=== PATIENT | female | born 1940 | race Caucasian/White ===

== ENCOUNTER → 2017-09-28 | Outpatient (CLI) | payer MEDICARE ==
--- NOTE | 2017-09-28 16:54 | ECHOF ---
Referral Reason:R06.02 shortness of breath, R42 Dizziness MEASUREMENTS -------- HEIGHT: 149.9 cm WEIGHT: 74.8 kg BP: 179/100 RVIDd: 2.7 cm (< 3.3) IVSd: 0.8 cm (0.6 - 1.1) LVIDd: 4.6 cm (3.9 - 5.3) LVPWd: 0.8 cm (0.6 - 1.1) IVSs: 1.4 cm LVIDs: 2.6 cm LVPWs: 1.4 cm LAESV Index (A-L): 12.34 ml/m Ao Diam: 2.8 cm (2.0 - 3.7) AV Cusp: 1.8 cm (1.5 - 2.6) LA Diam: 3.1 cm (2.7 - 3.8) MV EXCURSION: 16.312 mm (> 18.000) MV EF SLOPE: 62 mm/s (70 - 150) EPSS: 0.5 cm MV E Gene: 0.58 m/s MV DecT: 287 ms MV A Gene: 0.83 m/s MV E/A Ratio: 0.70 RAP: 5.00 mmHg RVSP: 8.33 mmHg FINDINGS -------- Sinus rhythm. This was a technically difficult study with suboptimal views. Unable to obtain IV access for contra st use. The left ventricular size is normal. Left ventricular wall thickness is normal. Overall left vent ricular systolic function is normal with, an EF between 55 - 60 %. The right ventricle is normal in size and function. Normal LA size by volume 22+/-6 ml/m2. The right atrium is normal in size. Aortic valve is trileaflet and is mildly thickened. There is no evidence of aortic regurgitation. There is no evidence of aortic stenosis. The mitral valve leaflets are mildly thickened. There is trace to mild mitral regurgitation. Trace tricuspid regurgitation present. Right ventricular systolic pressure is normal at < 35 mmHg. There is no evidence of pulmonary hypertension. The pulmonic valve was not well visualized. The aortic root size is normal. Normal inferior vena cava with normal inspiratory collapse consistent with estimated right atrial pre ssure of 5 mmHg. There is a trivial pericardial effusion present. CONCLUSIONS -------- 1. Sinus rhythm. 2. This was a technically difficult study with suboptimal views. 3. Unable to obtain IV access for contrast use. 4. The left ventricular size is normal. 5. Left ventricular wall thickness is normal. 6. Overall left ventricular systolic function is normal with, an EF between 55 - 60 %. 7. Normal LA size by volume 22+/-6 ml/m2. 8. Aortic valve is trileaflet and is mildly thickened. 9. The mitral valve leaflets are mildly thickened. 10. There is trace to mild mitral regurgitation. 11. Trace tricuspid regurgitation present. 12. Right ventricular systolic pressure is normal at < 35 mmHg. 13. There is no evidence of pulmonary hypertension. 14. The pulmonic valve was not well visualized. 15. The aortic root size is normal. 16. There is a trivial pericardial effusion present. [employer]: Sudhir Johnson RDCS
--- NOTE | 2017-09-29 07:56 | US ---
EXAMINATION TYPE: US carotid duplex BILAT DATE OF EXAM: 09/28/2017 COMPARISON: US 2011 CLINICAL HISTORY: R06.02 shortness of breath, R42 Dizziness. SOB, dizziness, weakness, nausea EXAM MEASUREMENTS: RIGHT: Peak Systolic Velocity (PSV) cm/sec ----- Right CCA: 63.9 ----- Right ICA: 77.4 ----- Right ECA: 131.9 ICA/CCA ratio: 1.2 RIGHT: End Diastole cm/sec ----- Right CCA: 16.8 ----- Right ICA: 19.8 ----- Right ECA: 14.9 LEFT: Peak Systolic Velocity (PSV) cm/sec ----- Left CCA: 66.8 ----- Left ICA: 84.6 ----- Left ECA: 73.8 ICA/CCA ratio: 1.3 LEFT: End Diastole cm/sec ----- Left CCA: 21.5 ----- Left ICA: 25.4 ----- Left ECA: 10.3 VERTEBRALS (direction of flow): Right Vertebral: Antegrade Left Vertebral: Antegrade Rhythm: Normal Bilateral intimal thickening, plaque bilateral bulb, elevated velocity: right proximal ECA, no signif icant stenosis. IMPRESSION: Mild grayscale atheromatous plaquing within the carotid bulbs. No sonographic evidence o f hemodynamically significant stenosis within either carotid arterial system.
== END | disposition home or self-care (01) ==
LOC: RADECHMAIN 14:34
PROVIDERS: ATTEND Internal Medicine
DX: I77.89 Other specified disorders of arteries and arterioles (principal); I08.0 Rheumatic disorders of both mitral and aortic valves
CPT/HCPCS: 93306; 93880

== ENCOUNTER 2018-06-13 15:41 | Emergency (ER) | payer MEDICARE ==
[2018-06-13 15:53] VITALS: BP 125/90; PULSE 80; RESP 18; TEMP 97.7
--- NOTE | 2018-06-13 17:46 | XR ---
PROCEDURE: XR shoulder complete LT - 3V DATE AND TIME: 06/13/2018 5:34 PM CLINICAL INDICATION: Posterior shoulder pain after fall TECHNIQUE: 2 oblique AP views and an oblique scapular Y view COMPARISON: 10/05/2010 FINDINGS: There is no fracture or malalignment. Exuberant osteophytic spurring is noted at the glenohumeral joint. The soft tissues are unremarkable. IMPRESSION: NO ACUTE PROCESS.
--- NOTE | 2018-06-13 17:47 | XR ---
PROCEDURE: XR humerus LT - 2V DATE AND TIME: 06/13/2018 5:34 PM CLINICAL INDICATION: PHH; Pain TECHNIQUE: AP and lateral views to include the shoulder and elbow. COMPARISON: None FINDINGS: Bones and joints and soft tissues are negative for acute findings. Exuberant osteophytic spur formation is seen at the glenohumeral joint. IMPRESSION: NO ACUTE PROCESS.
--- NOTE | 2018-06-13 18:12 | ED ---
General Adult HPI - General Chief complaint: Fall Stated complaint: fall/shoulder & arm pain Time Seen by Provider: 06/13/18 15:55 Source: patient, RN notes reviewed Mode of arrival: wheelchair Limitations: no limitations - History of Present Illness Initial comments: This is a 77-year-old female presents emergency Department complaining of left humerus and left shoulder pain. Patient states she fell on her multiple is been sore ever since per patient states she called her primary medical care doctor he told to come to the emergency department. Patient states it hurts to lift her arm in abduction. Patient has a difficult time with external rotation as well. Patient has no swelling patient has no gross deformity. Patient states it just hurts with movement. - Related Data Home Medications Medication Instructions Recorded Confirmed Isosorbide Mononitrate ER [Imdur] 30 mg PO DAILY 02/02/15 02/03/15 ALPRAZolam 0.5 mg PO HS 02/03/15 02/03/15 Metoprolol Succinate (ER) [Toprol 50 mg PO DAILY 02/03/15 02/03/15 Xl] amLODIPine [Norvasc] 10 mg PO DAILY 02/03/15 02/03/15 Previous Rx's Medication Instructions Recorded Ondansetron Odt [Zofran Odt] 4 mg PO Q8HR PRN #10 tab 02/02/15 Allergies Allergy/AdvReac Type Severity Reaction Status Date / Time biotin AdvReac Unknown Verified 06/13/18 15:53 hydromorphone HCl AdvReac Confusion Verified 06/13/18 15:53 [From Dilaudid] promethazine HCl AdvReac Confusion Verified 06/13/18 15:53 [From Phenergan] Review of Systems ROS Statement: Those systems with pertinent positive or pertinent negative responses have been documented in the HPI. ROS Other: All systems not noted in ROS Statement are negative. Past Medical History Past Medical History: Hypertension Additional Past Medical History / Comment(s): syncope History of Any Multi-Drug Resistant Organisms: None Reported Past Surgical History: Adenoidectomy, Cholecystectomy, Hysterectomy, Tonsillectomy Additional Past Surgical History / Comment(s): cyst removed from back Past Psychological History: Anxiety Smoking Status: Former smoker Past Alcohol Use History: None Reported Past Drug Use History: None Reported - Past Family History Mother Family Medical History: Diabetes Mellitus General Exam - General Exam Comments Initial Comments: GENERAL Patient is well-developed and well-nourished. Patient is in mild distress. EYES Patient's pupils are equal and round. Extraocular motion is intact SKIN Unremarkable NEURO The patient is alert and oriented 3 PYSCH Patient has normal interpersonal interactions. MUSCULOSKELETAL Left shoulder is tender to palpate in the lateral aspect as well as the mid shaft of the humerus. Patient has no clavicle tenderness. Patient states The tenderness. Patient has no elbow or forearm tenderness. Patient has a difficult time abducting the arm past 30 and externally rotating without causing significant pain Limitations: no limitations Course Vital Signs 06/13/18 15:51 Temperature 97.7 F Pulse Rate 80 Respiratory 18 Rate Blood Pressure 125/90 O2 Sat by Pulse 98 Oximetry Medical Decision Making - Medical Decision Making X-ray of the shoulder and humerus show no acute abnormality. Patient will follow-up with orthopedics. Disposition Clinical Impression: Left shoulder strain Disposition: HOME SELF-CARE Condition: Good Instructions: Fall Prevention for Older Adults (ED) Is patient prescribed a controlled substance at d/c from ED?: No Referrals: Paulino Menchaca MD [Primary Care Provider] - 1-2 days Darrell Adame MD [STAFF PHYSICIAN] - 1-2 days Time of Disposition: 18:13
== END 2018-06-13 19:04 | disposition home or self-care (01) ==
LOC: EC 15:41
DX: S46.912A Strain of unspecified muscle, fascia and tendon at shoulder and upper arm level, left arm, initial encounter (principal); I10 Essential (primary) hypertension; F41.9 Anxiety disorder, unspecified; Z87.891 Personal history of nicotine dependence; Z88.5 Allergy status to narcotic agent; Z88.8 Allergy status to other drugs, medicaments and biological substances; Z79.899 Other long term (current) drug therapy; W19.XXXA Unspecified fall, initial encounter; Y92.009 Unspecified place in unspecified non-institutional (private) residence as the place of occurrence of the external cause
CPT/HCPCS: 99283

== ENCOUNTER 2018-11-02 14:48 | Emergency (ER) | payer MEDICARE ==
[2018-11-02] MEDS ORDERED: MECLIZINE 12.5 MG TAB PO STA (15:16)
[2018-11-02] MEDS ORDERED: SODIUM CHLORIDE 0.9% 500 ML 500 ML IV STA (15:16)
--- NOTE | 2018-11-02 15:29 | ED ---
General Adult HPI - General Chief complaint: Dizziness Stated complaint: Dizziness, R leg pain Time Seen by Provider: 11/02/18 15:01 Source: patient, RN notes reviewed, old records reviewed Mode of arrival: wheelchair Limitations: no limitations - History of Present Illness Initial comments: 78-year-old female presenting for evaluation of dizziness and lightheadedness. She's had these episodes for several weeks, states the patient became more severe today. She reports worsening symptoms with sitting up and leaning forward. Patient has several additional complaints including chest pain, dyspnea, nausea, and extremity pain. She states she has pain in her bilateral lower extremities, worse on the right with ambulation and overuse. This is been ongoing as well. She does report some intermittent anterior chest pain. She states she has worsening dyspnea with ambulation. She reports previous history of intracranial hemorrhage. She reports intermittent headaches. - Related Data Home Medications Medication Instructions Recorded Confirmed Isosorbide Mononitrate ER [Imdur] 30 mg PO DAILY 02/02/15 11/02/18 amLODIPine [Norvasc] 10 mg PO DAILY 02/03/15 11/02/18 Metoprolol Tartrate [Lopressor] 50 mg PO DAILY 06/13/18 11/02/18 Nitroglycerin Sl Tabs [Nitrostat] 0.4 mg SUBLINGUAL Q5M PRN 06/13/18 11/02/18 Albuterol Inhaler [Ventolin Hfa 2 puff INHALATION RT-Q6H PRN 11/02/18 11/02/18 Inhaler] Naproxen Sod/Diphenhydramine 1 tab PO HS PRN 11/02/18 11/02/18 [Aleve Pm Caplet] traMADol HCL [Ultram] 50 mg PO Q8H PRN 11/02/18 11/02/18 Allergies Allergy/AdvReac Type Severity Reaction Status Date / Time biotin AdvReac Unknown Verified 11/02/18 17:10 hydromorphone HCl AdvReac Confusion Verified 11/02/18 17:10 [From Dilaudid] promethazine HCl AdvReac Confusion Verified 11/02/18 17:10 [From Phenergan] Review of Systems ROS Statement: Those systems with pertinent positive or pertinent negative responses have been documented in the HPI. ROS Other: All systems not noted in ROS Statement are negative. Past Medical History Past Medical History: Hypertension Additional Past Medical History / Comment(s): syncope History of Any Multi-Drug Resistant Organisms: None Reported Past Surgical History: Adenoidectomy, Cholecystectomy, Hysterectomy, Tonsillect juan r Additional Past Surgical History / Comment(s): cyst removed from back Past Psychological History: Anxiety Smoking Status: Former smoker Past Alcohol Use History: None Reported Past Drug Use History: None Reported - Past Family History Mother Family Medical History: Diabetes Mellitus General Exam Limitations: no limitations General appearance: alert, in no apparent distress Head exam: Present: atraumatic, normocephalic Eye exam: Present: normal appearance, PERRL, EOMI ENT exam: Present: mucous membranes dry Neck exam: Present: normal inspection. Absent: tenderness, meningismus Respiratory exam: Present: normal lung sounds bilaterally. Absent: respiratory distress, wheezes Cardiovascular Exam: Present: regular rate, normal rhythm GI/Abdominal exam: Present: soft. Absent: distended, tenderness Extremities exam: Present: normal inspection, normal capillary refill, other (Bilateral DP pulses, 2+). Absent: pedal edema Neurological exam: Present: alert, oriented X3, CN II-XII intact. Absent: motor sensory deficit Psychiatric exam: Present: normal affect, normal mood Skin exam: Present: warm, dry, intact. Absent: cyanosis, diaphoretic Course Vital Signs 11/02/18 11/02/18 14:55 15:44 Temperature 97.8 F Pulse Rate 80 80 Respiratory 18 18 Rate Blood Pressure 158/73 147/72 O2 Sat by Pulse 99 98 Oximetry - Reevaluation(s) Reevaluation #1: 11/02/18 17:46 Patient reevaluated, her symptoms are controlled, she is eager for discharge. Family at bedside. EKG Findings - EKG Comments: EKG Findings:: EKG: Normal sinus rhythm, rate of 77, MA interval 140, QRS duration 74, QTC 448, no ST segment elevation Medical Decision Making - Medical Decision Making 78-year-old female with multiple complaints. Patient well-appearing with stable vitals. EKG is nonischemic. She has mild leukocytosis 12.3, uncertain etiology. She has normal electrolytes. Urinalysis shows 14 white cells with no urinary symptoms. CT negative for intracranial hemorrhage, chest x-ray negative for focal pneumonia acute cardiopulmonary disease. Patient is reevaluated, resting comfortably after IV fluids and meclizine. Eager for discharge. Will follow-up with primary care physician, she has an appointment in the next several days. - Lab Data Result diagrams: 11/02/18 15:29 11/02/18 15:29 Lab Results 11/02/18 11/02/18 11/02/18 Range/Units 15:29 15:29 15:29 WBC 12.3 H (3.8-10.6) k/uL RBC 5.07 (3.80-5.40) m/uL Hgb 14.3 (11.4-16.0) gm/dL Hct 43.5 (34.0-46.0) % MCV 85.9 (80.0-100.0) fL MCH 28.1 (25.0-35.0) pg MCHC 32.8 (31.0-37.0) g/dL RDW 14.3 (11.5-15.5) % Plt Count 335 (150-450) k/uL Neutrophils % 60 % Lymphocytes % 31 % Monocytes % 4 % Eosinophils % 2 % Basophils % 1 % Neutrophils # 7.3 (1.3-7.7) k/uL Lymphocytes # 3.8 (1.0-4.8) k/uL Monocytes # 0.5 (0-1.0) k/uL Eosinophils # 0.3 (0-0.7) k/uL Basophils # 0.1 (0-0.2) k/uL PT 10.3 (9.0-12.0) sec INR 1.0 (<1.2) APTT 22.9 (22.0-30.0) sec Sodium 142 (137-145) mmol/L Potassium 5.0 (3.5-5.1) mmol/L Chloride 110 H (98-107) mmol/L Carbon Dioxide 20 L (22-30) mmol/L Anion Gap 12 mmol/L BUN 13 (7-17) mg/dL Creatinine 0.75 (0.52-1.04) mg/dL Est GFR (CKD-EPI)AfAm 90 (>60 ml/min/1.73 sqM) Est GFR (CKD-EPI)NonAf 78 (>60 ml/min/1.73 sqM) Glucose 101 H (74-99) mg/dL Calcium 9.9 (8.4-10.2) mg/dL Magnesium 2.1 (1.6-2.3) mg/dL Total Bilirubin 0.8 (0.2-1.3) mg/dL AST 23 (14-36) U/L ALT 15 (9-52) U/L Alkaline Phosphatase 142 H (38-126) U/L Troponin I (0.000-0.034) ng/mL Total Protein 7.9 (6.3-8.2) g/dL Albumin 4.8 (3.5-5.0) g/dL Urine Color Urine Appearance (Clear) Urine pH (5.0-8.0) Ur Specific Toyah (1.001-1.035) Urine Protein (Negative) Urine Glucose (UA) (Negative) Urine Ketones (Negative) Urine Blood (Negative) Urine Nitrite (Negative) Urine Bilirubin (Negative) Urine Urobilinogen (<2.0) mg/dL Ur Leukocyte Esterase (Negative) Urine RBC (0-5) /hpf Urine WBC (0-5) /hpf Ur Squamous Epith Cells (0-4) /hpf Urine Bacteria (None) /hpf Urine Mucus (None) /hpf 11/02/18 11/02/18 Range/Units 15:29 15:39 WBC (3.8-10.6) k/uL RBC (3.80-5.40) m/uL Hgb (11.4-16.0) gm/dL Hct (34.0-46.0) % MCV (80.0-100.0) fL MCH (25.0-35.0) pg MCHC (31.0-37.0) g/dL RDW (11.5-15.5) % Plt Count (150-450) k/uL Neutrophils % % Lymphocytes % % Monocytes % % Eosinophils % % Basophils % % Neutrophils # (1.3-7.7) k/uL Lymphocytes # (1.0-4.8) k/uL Monocytes # (0-1.0) k/uL Eosinophils # (0-0.7) k/uL Basophils # (0-0.2) k/uL PT (9.0-12.0) sec INR (<1.2) APTT (22.0-30.0) sec Sodium (137-145) mmol/L Potassium (3.5-5.1) mmol/L Chloride (98-107) mmol/L Carbon Dioxide (22-30) mmol/L Anion Gap mmol/L BUN (7-17) mg/dL Creatinine (0.52-1.04) mg/dL Est GFR (CKD-EPI)AfAm (>60 ml/min/1.73 sqM) Est GFR (CKD-EPI)NonAf (>60 ml/min/1.73 sqM) Glucose (74-99) mg/dL Calcium (8.4-10.2) mg/dL Magnesium (1.6-2.3) mg/dL Total Bilirubin (0.2-1.3) mg/dL AST (14-36) U/L ALT (9-52) U/L Alkaline Phosphatase (38-126) U/L Troponin I <0.012 (0.000-0.034) ng/mL Total Protein (6.3-8.2) g/dL Albumin (3.5-5.0) g/dL Urine Color Colorless Urine Appearance Clear (Clear) Urine pH 7.5 (5.0-8.0) Ur Specific Toyah 1.005 (1.001-1.035) Urine Protein Negative (Negative) Urine Glucose (UA) Negative (Negative) Urine Ketones Negative (Negative) Urine Blood Negative (Negative) Urine Nitrite Negative (Negative) Urine Bilirubin Negative (Negative) Urine Urobilinogen <2.0 (<2.0) mg/dL Ur Leukocyte Esterase Moderate H (Negative) Urine RBC 3 (0-5) /hpf Urine WBC 14 H (0-5) /hpf Ur Squamous Epith Cells <1 (0-4) /hpf Urine Bacteria Rare H (None) /hpf Urine Mucus Rare H (None) /hpf Disposition Clinical Impression: Dehydration, Vertigo Disposition: HOME SELF-CARE Condition: Good Instructions (If sedation given, give patient instructions): Dizziness (ED) Is patient prescribed a controlled substance at d/c from ED?: No Referrals: Paulino Menchaca MD [Primary Care Provider] - 1-2 days Time of Disposition: 17:47
[2018-11-02 15:40] LABS: Basophils # (A) 0.1 k/uL (0-0.2); Basophils % (A) 1 %; Eosinophils # (A) 0.3 k/uL (0-0.7); Eosinophils % (A) 2 %; HCT 43.5 % (34.0-46.0); HGB 14.3 gm/dL (11.4-16.0); Lymphocytes # (A) 3.8 k/uL (1.0-4.8); Lymphocytes % (A) 31 %; MCH 28.1 pg (25.0-35.0); MCHC 32.8 g/dL (31.0-37.0); MCV 85.9 fL (80.0-100.0); Mean Platelet Volume 7.4; Monocytes # (A) 0.5 k/uL (0-1.0); Monocytes % (A) 4 %; Neutrophils # (A) 7.3 k/uL (1.3-7.7); Neutrophils % (A) 60 %; Platelet Count 335 k/uL (150-450); RBC 5.07 m/uL (3.80-5.40); RDW 14.3 % (11.5-15.5); WBC 12.3 k/uL (3.8-10.6)
[2018-11-02 15:50] LABS: Albumin 4.8 g/dL (3.5-5.0); Calcium 9.9 mg/dL (8.4-10.2); Magnesium 2.1 mg/dL (1.6-2.3); Total Bilirubin 0.8 mg/dL (0.2-1.3); Total Protein 7.9 g/dL (6.3-8.2)
[2018-11-02 15:53] LABS: Appearance,Urine Clear (Clear); Bacteria,Urine Rare /hpf; Bilirubin,Urine Negative (Negative); Blood,Urine Negative (Negative); Color,Urine Colorless; Glucose,Urine (UA) Negative (Negative); Ketones,Urine Negative (Negative); Leukocyte Esterase,Urine Moderate (Negative); Mucus,Urine Rare /hpf; Nitrite,Urine Negative (Negative); PH, Urine 7.5 (5.0-8.0); Protein,Urine Negative (Negative); RBC,Urine 3 /hpf (0-5); Specific Gravity,Urine 1.005 (1.001-1.035); Squamous Epithelial Cell,Urine <1 /hpf (0-4); Urobilinogen,Urine <2.0 mg/dL (<2.0); WBC,Urine 14 /hpf (0-5)
[2018-11-02 16:09] LABS: Partial Thromboplastin Time 22.9 sec (22.0-30.0); Prothrombin Time 10.3 sec (9.0-12.0)
--- NOTE | 2018-11-02 16:18 | XR ---
EXAMINATION TYPE: XR chest 2V DATE OF EXAM: 11/02/2018 COMPARISON: 02/02/2015 INDICATION: Syncope TECHNIQUE: Frontal and lateral views of the chest are obtained. FINDINGS: The heart size is normal. The pulmonary vasculature is normal. The lungs are clear. Degenerative changes are at the left shoulder IMPRESSION: 1. No acute pulmonary process.
--- NOTE | 2018-11-02 16:22 | CT ---
EXAMINATION TYPE: CT brain wo con DATE OF EXAM: 11/02/2018 COMPARISON: 02/04/2015 INDICATION: Dizziness. DLP: 1156.4 mGycm, Automated exposure control for dose reduction was used. CONTRAST: None CT of the brain is performed utilizing 3 mm thick sections through the posterior fossa and 3 mm thick sections through the remaining calvarium. Study is performed within 24 hours of arrival to the hosp [facility]. No abnormal hyperdensity is present to suggest an acute intracranial hemorrhage. No mass lesion is evident. No acute infarcts are evident. Ventricles and sulci are appropriate for the patient age. Paranasal sinuses and mastoid air cells within the [id number] are clear. IMPRESSIONS: 1. Normal CT Brain
[2018-11-02 18:15] VITALS: BP 180/101; PULSE 84; RESP 16; TEMP 98
== END 2018-11-02 18:16 | disposition home or self-care (01) ==
LOC: EC 14:48
DX: E86.0 Dehydration (principal); D72.829 Elevated white blood cell count, unspecified; R07.89 Other chest pain; R06.00 Dyspnea, unspecified; R11.0 Nausea; R51 Headache; I10 Essential (primary) hypertension; Z87.891 Personal history of nicotine dependence; Z79.899 Other long term (current) drug therapy; Z88.8 Allergy status to other drugs, medicaments and biological substances; Z88.5 Allergy status to narcotic agent
CPT/HCPCS: 36415; 70450; 71046; 80053; 81001; 83735; 84484; 85025; 85610; 85730; 93005; 96360; 96361; 99285

== ENCOUNTER → 2020-03-12 | Outpatient (CLI) | payer MEDICARE ==
--- NOTE | 2020-03-12 15:13 | XR ---
EXAMINATION TYPE: XR Hip Complete RT DATE OF EXAM: 03/12/2020 COMPARISON: NONE HISTORY: Pain TECHNIQUE: 2 views submitted FINDINGS: Severe arthropathy of the hip with hypertrophic changes. No acute fracture or dislocation. Lucency ov erlying the right femoral neck a be soft tissue related. IMPRESSION: 1. Severe arthropathy with probable soft tissue artifact overlying the right femoral neck. Recommend CT scan for further evaluation. A Yellow level critical message alert has been initiated for Paulino Menchaca MD via the [facility] Results System on 03/12/2020 3:11 PM. This message alert has been sent to Paulino Menchaca MD via the preferences provided by the clinician for the receipt of Radiology Critical Findings. [employer] e ID [id number].
--- NOTE | 2020-03-12 15:15 | XR ---
EXAM TYPE: LUMBAR SPINE X RAY SERIES COMPARISON: NONE HISTORY: Pain TECHNIQUE: 4 views are submitted. FINDINGS: Alignment is anatomic. The pedicles are intact. The transverse processes are intact. Diffuse osteop enia with multilevel degenerative disc disease and scoliotic curvature. Grade 1 anterolisthesis L4 on L5. Multilevel facet arthropathy. Vascular calcifications noted. Surgical clips in the right upper q uadrant. IMPRESSION: 1. Diffuse osteopenia with multilevel degenerative disc disease and facet arthropathy. Grade 1 jacqueline listhesis L4 and L5. Foraminal encroachment L4-5 and L5-S1 suspected. Recommend follow-up MRI.
== END | disposition home or self-care (01) ==
LOC: RADXRMAIN 14:29
PROVIDERS: ATTEND Internal Medicine
DX: M12.851 Other specific arthropathies, not elsewhere classified, right hip (principal); M43.16 Spondylolisthesis, lumbar region; M51.36 Other intervertebral disc degeneration, lumbar region; M47.816 Spondylosis without myelopathy or radiculopathy, lumbar region; M85.88 Other specified disorders of bone density and structure, other site
CPT/HCPCS: 72110; 73502

== ENCOUNTER 2020-05-27 09:50 | Emergency (ER) | payer MEDICARE ==
[2020-05-27] MEDS ORDERED: SODIUM CHLORIDE 0.9% 500 ML 500 ML IV STA (10:08)
[2020-05-27 10:29] LABS: Basophils # (A) 0.1 k/uL (0-0.2); Basophils % (A) 1 %; Eosinophils # (A) 0.3 k/uL (0-0.7); Eosinophils % (A) 4 %; HCT 45.5 % (34.0-46.0); HGB 15.5 gm/dL (11.4-16.0); Lymphocytes # (A) 3.1 k/uL (1.0-4.8); Lymphocytes % (A) 35 %; MCH 29.6 pg (25.0-35.0); Mean Platelet Volume 7.7; Monocytes # (A) 0.5 k/uL (0-1.0); Monocytes % (A) 6 %; Neutrophils # (A) 4.7 k/uL (1.3-7.7); Neutrophils % (A) 52 %; Platelet Count 282 k/uL (150-450); RBC 5.23 m/uL (3.80-5.40); RDW 13.8 % (11.5-15.5)
[2020-05-27] MEDS ORDERED: MORPHINE SULFATE 4 MG/ML SYRINGE IVP STA (10:29)
[2020-05-27] MEDS ORDERED: ONDANSETRON 4 MG/2 ML VIAL IVP STA (10:29)
--- NOTE | 2020-05-27 10:33 | ED ---
Chest Pain HPI - General Chief Complaint: Chest Pain Stated Complaint: SOB Time Seen by Provider: 05/27/20 09:59 Source: patient, EMS, RN notes reviewed Mode of arrival: EMS Limitations: no limitations - History of Present Illness Initial Comments: 79-year-old female presents emergency Department with multiple complaints. Patient states that she's been having ongoing leg pain, cramping that radiates up throughout her body. Patient states it happens typically every morning. Patient states that she talked to her doctor about it but they do not do an ything at that time. Patient states that she's not start any new medications. Patient states over the last 3-4 days she's had a cough congestion. Patient states she's been wheezing she does have an inhaler but states that this is old that she uses. Patient also also has a abscess on her back which was draining but now is healing up. No reported fevers or chills no current chest pain. Patient denies any abdominal complaints including nausea and diarrhea constipation. - Related Data Home Medications Medication Instructions Recorded Confirmed Isosorbide Mononitrate ER [Imdur] 30 mg PO DAILY 02/02/15 05/27/20 amLODIPine [Norvasc] 10 mg PO DAILY 02/03/15 05/27/20 Metoprolol Tartrate [Lopressor] 50 mg PO DAILY 06/13/18 05/27/20 Nitroglycerin Sl Tabs [Nitrostat] 0.4 mg SUBLINGUAL Q5M PRN 06/13/18 05/27/20 Albuterol Sulfate [Ventolin HFA] 1 - 2 puff INHALATION RT-Q6H PRN 05/27/20 05/27/20 Ergocalciferol [Vitamin D2] 50,000 unit PO MO 05/27/20 05/27/20 Ipratropium-Albuterol Nebulize 3 ml INHALATION RT-QID 05/27/20 05/27/20 [Duoneb 0.5 mg-3 mg/3 ml Soln] Previous Rx's Medication Instructions Recorded methocarbamoL [Robaxin] 500 mg PO BID #10 tab 05/27/20 Allergies Allergy/AdvReac Type Severity Reaction Status Date / Time biotin AdvReac Unknown Verified 05/27/20 10:32 hydromorphone HCl AdvReac Confusion Verified 05/27/20 10:32 [From Dilaudid] promethazine HCl AdvReac Confusion Verified 05/27/20 10:32 [From Phenergan] Review of Systems ROS Statement: Those systems with pertinent positive or pertinent negative responses have been documented in the HPI. ROS Other: All systems not noted in ROS Statement are negative. EKG Findings - EKG Comments: EKG Findings:: EKG performed at 10:01 normal sinus rhythm rate of 75 ME 140 QRS 74 QT/QTC 390 /442 Past Medical History Past Medical History: Hypertension Additional Past Medical History / Comment(s): syncope History of Any Multi-Drug Resistant Organisms: None Reported Past Surgical History: Adenoidectomy, Cholecystectomy, Hysterectomy, Ton sillectomy Additional Past Surgical History / Comment(s): cyst removed from back Past Psychological History: Anxiety Smoking Status: Former smoker Past Alcohol Use History: None Reported Past Drug Use History: None Reported - Past Family History Mother Family Medical History: Diabetes Mellitus General Exam General appearance: alert, in no apparent distress Head exam: Present: atraumatic, normocephalic, normal inspection Eye exam: Present: normal appearance, PERRL, EOMI. Absent: scleral icterus, conjunctival injection, periorbital swelling ENT exam: Present: normal exam, mucous membranes moist Neck exam: Present: normal inspection, full ROM. Absent: tenderness, meningis mus, lymphadenopathy Respiratory exam: Present: normal lung sounds bilaterally. Absent: respiratory distress, wheezes, rales, rhonchi, stridor Cardiovascular Exam: Present: regular rate, normal rhythm, normal heart sounds. Absent: systolic murmur, diastolic murmur, rubs, gallop, clicks GI/Abdominal exam: Present: soft, normal bowel sounds. Absent: distended, tenderness, guarding, rebound, rigid Extremities exam: Present: other (Extremities full range of motion neurovascular intact equal color equal warmth pulses equal, reflexes normal. Full strength) Back exam: Present: other (There is a healed over wound on her back with no erythema nonfluctuant) Neurological exam: Present: alert, oriented X3, CN II-XII intact, reflexes normal. Absent: motor sensory deficit Skin exam: Present: warm, dry, intact, normal color. Absent: rash Course Vital Signs 05/27/20 05/27/20 09:51 12:07 Temperature 98.2 F Pulse Rate 80 71 Respiratory 22 18 Rate Blood Pressure 125/97 136/84 O2 Sat by Pulse 99 98 Oximetry Chest Pain MDM - MDM This 79-year-old female presented for leg cramping, pain has been ongoing for several weeks. Patient did have mild lactic acidosis though most likely from mild dehydration. Patient was hydrated, but he has his is within normal limits. Patient has no signs of infection. Patient had no chest pain and EKG troponin negative. Patient did have slight cough congestion with chest x-rays unremarkable, Covid negative. Patient's legs are equal color equal warmth patient has normal neuro exam she is able to ambulate by herself with no difficulty. There is no ataxia. Disposition Clinical Impression: Leg cramping, Mild dehydration, Upper respiratory infection Disposition: HOME SELF-CARE Condition: Stable Instructions (If sedation given, give patient instructions): Leg Cramps (ED) Additional Instructions: Please return to the Emergency Department if symptoms worsen or any other concerns. Prescriptions: methocarbamoL [Robaxin] 500 mg PO BID #10 tab Is patient prescribed a controlled substance at d/c from ED?: No Referrals: Paulino Menchaca MD [Primary Care Provider] - 1-2 days Time of Disposition: 13:30
[2020-05-27 10:38] LABS: Partial Thromboplastin Time 22.9 sec (22.0-30.0); Prothrombin Time 10.4 sec (9.0-12.0)
[2020-05-27 10:41] LABS: Albumin 4.5 g/dL (3.5-5.0); C Reactive Protein 11.1 mg/L (<10.0); Calcium 9.8 mg/dL (8.4-10.2); Magnesium 2.2 mg/dL (1.6-2.3); Potassium 4.5 mmol/L (3.5-5.1); Total Bilirubin 0.9 mg/dL (0.2-1.3); Total Protein 7.5 g/dL (6.3-8.2)
[2020-05-27] MEDS ORDERED: SODIUM CHLORIDE 0.9% 1,000 ML IV ONE (10:47)
--- NOTE | 2020-05-27 11:06 | XR ---
EXAMINATION TYPE: XR chest 2V DATE OF EXAM: 05/27/2020 COMPARISON: Chest x-ray November 02, 2018 HISTORY: Chest pain. Discharged from posterior mid thoracic cyst. TECHNIQUE: Frontal and lateral views of the chest are obtained. FINDINGS: There is chronic parenchymal changes without suspicious new focal air space opacity, pleur al effusion, or pneumothorax seen. The cardiac silhouette size is stable and within normal limits. The osseous structures are demineralized. Degenerative changes left greater than right bilateral gle nohumeral joints. IMPRESSION: Chronic changes without acute pulmonary process.
[2020-05-27 12:08] VITALS: RESP 18
[2020-05-27] MEDS ORDERED: DIAZEPAM 5 MG/ML 2 ML INJ IVP STA (12:13)
[2020-05-27 12:14] LABS: Appearance,Urine Clear (Clear); Bilirubin,Urine Negative (Negative); Blood,Urine Negative (Negative); Color,Urine Colorless; Glucose,Urine (UA) Negative (Negative); Ketones,Urine Negative (Negative); Leukocyte Esterase,Urine Trace (Negative); Nitrite,Urine Negative (Negative); Protein,Urine Negative (Negative); RBC,Urine 1 /hpf (0-5); Specific Gravity,Urine 1.005 (1.001-1.035); Squamous Epithelial Cell,Urine <1 /hpf (0-4); Urobilinogen,Urine <2.0 mg/dL (<2.0); WBC,Urine 3 /hpf (0-5)
[2020-05-27] MEDS ORDERED: ACET/COD 300 MG/30 MG STARTER PACK 6 TAB BTL PO STA (13:30)
[2020-05-27 13:52] VITALS: BP 162/97; PULSE 82; TEMP 97.1
== END 2020-05-27 13:49 | disposition home or self-care (01) ==
LOC: EC 09:50
DX: J06.9 Acute upper respiratory infection, unspecified (principal); E86.0 Dehydration; R25.2 Cramp and spasm; E87.2 Acidosis; I10 Essential (primary) hypertension; Z20.828 Contact with and (suspected) exposure to other viral communicable diseases; Z79.899 Other long term (current) drug therapy; Z88.5 Allergy status to narcotic agent; Z88.8 Allergy status to other drugs, medicaments and biological substances; Z87.891 Personal history of nicotine dependence
CPT/HCPCS: 36415; 93005; 83880; 80053; 83605; 83690; 83735; 84484; 85025; 85610; 85730; 86140; 81001; 87635; 71046; 99285; 96374; 96375 ×2; 96361 ×4; J2270; J3360; J2405

== ENCOUNTER 2021-01-23 10:31 | Emergency (ER) | payer MEDICARE ==
[2021-01-23 10:43] VITALS: TEMP 98
[2021-01-23] MEDS ORDERED: ASPIRIN 81 MG PO STA (11:07)
[2021-01-23] MEDS ORDERED: SODIUM CHLORIDE 0.9% 1,000 ML IV STA (11:07)
[2021-01-23 12:01] LABS: Basophils # (A) 0.1 k/uL (0-0.2); Basophils % (A) 1 %; Eosinophils # (A) 0.4 k/uL (0-0.7); Eosinophils % (A) 3 %; HCT 45.1 % (34.0-46.0); HGB 15.1 gm/dL (11.4-16.0); Lymphocytes # (A) 3.1 k/uL (1.0-4.8); Lymphocytes % (A) 27 %; MCH 30.4 pg (25.0-35.0); MCHC 33.3 g/dL (31.0-37.0); MCV 91.3 fL (80.0-100.0); Mean Platelet Volume 7.9; Monocytes # (A) 0.6 k/uL (0-1.0); Monocytes % (A) 5 %; Neutrophils # (A) 7.2 k/uL (1.3-7.7); Neutrophils % (A) 62 %; Platelet Count 342 k/uL (150-450); RBC 4.95 m/uL (3.80-5.40); RDW 13.7 % (11.5-15.5); WBC 11.6 k/uL (3.8-10.6)
--- NOTE | 2021-01-23 12:13 | ED ---
Chest Pain HPI - General Chief Complaint: Chest Pain Stated Complaint: chest pain,SOB Time Seen by Provider: 01/23/21 10:49 Source: patient, RN notes reviewed Mode of arrival: ambulatory Limitations: no limitations - History of Present Illness Initial Comments: This is a 80-year-old female presents emergency Department with multiple complaints. Patient states she feels that she is dehydrated. Patient states that she noticed swelling of her veins and states that she has some swelling of her legs. Patient states she had some chest discomfort which she states is very mild states is something that bothersome at this time. She does complain of some shortness of breath which is not on the usual this is chronic in nature. No fevers or chills. Patient states she's been eating and drinking well. Patient had no recent medication changes. - Related Data Home Medications Medication Instructions Recorded Confirmed Isosorbide Mononitrate ER [Imdur] 30 mg PO DAILY 02/02/15 05/27/20 amLODIPine [Norvasc] 10 mg PO DAILY 02/03/15 05/27/20 Metoprolol Tartrate [Lopressor] 50 mg PO DAILY 06/13/18 05/27/20 Nitroglycerin Sl Tabs [Nitrostat] 0.4 mg SUBLINGUAL Q5M PRN 06/13/18 05/27/20 Albuterol Sulfate [Ventolin HFA] 1 - 2 puff INHALATION RT-Q6H PRN 05/27/20 05/27/20 Ergocalciferol [Vitamin D2] 50,000 unit PO MO 05/27/20 05/27/20 Ipratropium-Albuterol Nebulize 3 ml INHALATION RT-QID 05/27/20 05/27/20 [Duoneb 0.5 mg-3 mg/3 ml Soln] Previous Rx's Medication Instructions Recorded methocarbamoL [Robaxin] 500 mg PO BID #10 tab 05/27/20 Allergies Allergy/AdvReac Type Severity Reaction Status Date / Time biotin AdvReac Unknown Verified 01/23/21 10:43 hydromorphone HCl AdvReac Confusion Verified 01/23/21 10:43 [From Dilaudid] promethazine HCl AdvReac Confusion Verified 01/23/21 10:43 [From Phenergan] Review of Systems ROS Statement: Those systems with pertinent positive or pertinent negative responses have been documented in the HPI. ROS Other: All systems not noted in ROS Statement are negative. Past Medical History Past Medical History: Hypertension Additional Past Medical History / Comment(s): syncope History of Any Multi-Drug Resistant Organisms: None Reported Past Surgical History: Adenoidectomy, Cholecystectomy, Hysterectomy, Tonsillectomy Additional Past Surgical History / Comment(s): cyst removed from back Past Psychological History: Anxiety Smoking Status: Former smoker Past Alcohol Use History: None Reported Past Drug Use History: None Reported - Past Family History Mother Family Medical History: Diabetes Mellitus General Exam Limitations: no limitations General appearance: alert, in no apparent distress Head exam: Present: atraumatic, normocephalic, normal inspection Eye exam: Present: normal appearance, PERRL, EOMI. Absent: scleral icterus, conjunctival injection, periorbital swelling ENT exam: Present: normal exam, normal oropharynx, mucous membranes moist Neck exam: Present: normal inspection, full ROM. Absent: tenderness, meningismus, lymphadenopathy Respiratory exam: Present: normal lung sounds bilaterally. Absent: respiratory distress, wheezes, rales, rhonchi, stridor Cardiovascular Exam: Present: regular rate, normal rhythm, normal heart sounds. Absent: systolic murmur, diastolic murmur, rubs, gallop, clicks GI/Abdominal exam: Present: soft, normal bowel sounds. Absent: distended, tenderness, guarding, rebound, rigid Extremities exam: Present: normal inspection, full ROM Back exam: Absent: CVA tenderness (R), CVA tenderness (L) Neurological exam: Present: alert, oriented X3, CN II-XII intact Course Vital Signs 01/23/21 01/23/21 01/23/21 10:41 11:27 11:33 Temperature 98 F Pulse Rate 84 Pulse Rate [ 82 Bilateral Radial] Respiratory 20 22 Rate Blood Pressure 137/87 O2 Sat by Pulse 97 Oximetry Chest Pain MDM - MDM This a 80-year-old female presents emergency department for concern of dehydration. Patient was hydrated. Patient multiple complaints stating that she had pains dehydration bulging veins. Patient was mentioned of chest pain but this was not current today or within last 24 hours. Patient was given IV fluids states that she feels better she was complaining of back and leg pain from sitting on the stretcher she hasn't provided pain relief will be discharged to condition patient son in the room agrees this plan and states that she does not feel that she is be admitted. Disposition Clinical Impression: Myalgia, Dehydration Disposition: HOME SELF-CARE Condition: Stable Instructions (If sedation given, give patient instructions): Musculoskeletal Pain (ED) Additional Instructions: Please return to the Emergency Department if symptoms worsen or any other conc erns. Is patient prescribed a controlled substance at d/c from ED?: No Referrals: Paulino Menchaca MD [Primary Care Provider] - 1-2 days Time of Disposition: 13:38
[2021-01-23 12:18] LABS: Albumin 5.1 g/dL (3.5-5.0); Calcium 10.5 mg/dL (8.4-10.2); Total Bilirubin 1.2 mg/dL (0.2-1.3); Total Protein 8.2 g/dL (6.3-8.2)
--- NOTE | 2021-01-23 12:18 | XR ---
EXAMINATION TYPE: XR chest 2V DATE OF EXAM: 01/23/2021 COMPARISON: 05/27/2020 HISTORY: 80-year-old female with chest pain and shortness of breath TECHNIQUE: AP and lateral views FINDINGS: Heart normal size. Aorta and pulmonary vasculature within normal limits. There are old healed left-si ded rib fracture deformities. Mild interstitial prominence likely technical due to large body habitus . No willian consolidation or pleural effusion. Degenerative change at both glenohumeral joints. IMPRESSION: No acute cardiopulmonary process. Old left-sided healed fracture deformities.
[2021-01-23 12:31] LABS: Magnesium 2.3 mg/dL (1.6-2.3); Potassium 5.1 mmol/L (3.5-5.1)
[2021-01-23 12:35] LABS: Partial Thromboplastin Time 23.4 sec (22.0-30.0); Prothrombin Time 10.6 sec (9.0-12.0)
[2021-01-23] MEDS ORDERED: KETOROLAC 15 MG/ML 1 ML VIAL IVP STA (13:35)
[2021-01-23 14:14] VITALS: BP 169/115; PULSE 88; RESP 20
== END 2021-01-23 14:16 | disposition home or self-care (01) ==
LOC: EC 10:31
DX: E86.0 Dehydration (principal); M79.10 Myalgia, unspecified site; R07.89 Other chest pain; R06.02 Shortness of breath; M79.89 Other specified soft tissue disorders; I10 Essential (primary) hypertension; Z87.891 Personal history of nicotine dependence; Z88.5 Allergy status to narcotic agent; Z88.8 Allergy status to other drugs, medicaments and biological substances; Z79.899 Other long term (current) drug therapy; Z91.018 Allergy to other foods
CPT/HCPCS: 36415; 93005; 80053; 83735; 84484; 85025; 85610; 85730; 71046; 99285; 96374; 96361; J1885

== ENCOUNTER → 2023-07-18 | Outpatient (CLI) | payer MEDICARE ==
--- NOTE | 2023-07-19 08:20 | XR ---
EXAMINATION TYPE: XR chest 2V DATE OF EXAM: 07/18/2023 COMPARISON: 01/23/2021 TECHNIQUE: PA and lateral views submitted. HISTORY: Shortness of breath FINDINGS: The lungs are clear and there is no pneumothorax, pleural effusion, or focal pneumonia. Heart size normal and no overt failure. Osseous structures demonstrate hypertrophic and degenerative changes of the spine. Surgical clips in the right upper quadrant. Chronic rib deformities noted. Arthropathy of the shoulde rs with diffuse osteopenia. IMPRESSION: 1. No acute process.
== END | disposition home or self-care (01) ==
LOC: RADXRMAIN 17:02
PROVIDERS: ATTEND Internal Medicine
DX: R06.02 Shortness of breath (principal)
CPT/HCPCS: 71046

== ENCOUNTER 2024-06-13 21:16 | Observation (INO) | payer MEDICARE ==
--- NOTE | 2024-06-13 21:26 | ED ---
Chest Pain HPI - General Stated Complaint: Chest pain Time Seen by Provider: 06/13/24 21:17 Source: RN notes reviewed, old records reviewed Mode of arrival: EMS Limitations: no limitations - History of Present Illness Initial Comments: This is an 83-year-old female who presents with chest pain today. Patient states she has been suffering from chest pain for quite some time chest pain is persistent here in the emergency department. Patient has no recent travel history or sick contacts no other complaints. Patient has no shortness of breath no sweating no fevers, states she is scheduled to have ultrasound evaluation to see if she is having cardiac cause of chest pain MD Complaint: chest pain -: week(s) Onset: during rest, during exertion, awoke with symptoms Pain Location: substernal, left chest Pain Radiation: LUE Severity: mild Severity scale (1-10): 3 Quality: tightness Consistency: intermittent Improves With: nothing Worsens With: nothing Anginal Symptoms: sense of impending doom Treatments Prior to Arrival: none - Related Data Home Medications Medication Instructions Recorded Confirmed Metoprolol Tartrate [Lopressor] 50 mg PO DAILY 06/13/18 06/14/24 Nitroglycerin Sl Tabs [Nitrostat] 0.4 mg SUBLINGUAL Q5M PRN 06/13/18 06/14/24 Losartan [Cozaar] 25 mg PO DAILY 06/14/24 06/14/24 Rosuvastatin Calcium [Crestor] 5 mg PO DAILY 06/14/24 06/14/24 amLODIPine [Norvasc] 5 mg PO DAILY 06/14/24 06/14/24 Previous Rx's Medication Instructions Recorded cefuroxime axetiL [Ceftin] 500 mg PO BID 5 Days #10 tab 06/16/24 Allergies Allergy/AdvReac Type Severity Reaction Status Date / Time biotin AdvReac Unknown Verified 06/13/24 21:35 hydromorphone HCl AdvReac Confusion Verified 06/13/24 21:35 [From Dilaudid] promethazine HCl AdvReac Confusion Verified 06/13/24 21:35 [From Phenergan] Review of Systems ROS Statement: Those systems with pertinent positive or pertinent negative responses have been documented in the HPI. ROS Other: All systems not noted in ROS Statement are negative. EKG Findings - EKG Comments: EKG Findings:: EKG is sinus 61 AR 158 QRS 80 QTc 407 - EKG Results: EKG: interpreted by JOI Past Medical History Past Medical History: Hypertension Additional Past Medical History / Comment(s): syncope History of Any Multi-Drug Resistant Organisms: None Reported Past Surgical History: Adenoidectomy, Cholecystectomy, Hysterectomy, Tonsillectomy Additional Past Surgical History / Comment(s): cyst removed from back Past Psychological History: Anxiety Smoking Status: Former smoker Past Alcohol Use History: None Reported Past Drug Use History: None Reported - Past Family History Mother Family Medical History: Diabetes Mellitus General Exam General appearance: alert, in no apparent distress Head exam: Present: atraumatic, normocephalic, normal inspection Eye exam: Present: normal appearance, PERRL, EOMI. Absent: scleral icterus, conjunctival injection, periorbital swelling ENT exam: Present: normal exam, mucous membranes moist Neck exam: Present: normal inspection. Absent: tenderness, meningismus, lymphadenopathy Respiratory exam: Present: normal lung sounds bilaterally. Absent: respiratory distress, wheezes, rales, rhonchi, stridor Cardiovascular Exam: Present: regular rate, normal rhythm, normal heart sounds. Absent: systolic murmur, diastolic murmur, rubs, gallop, clicks GI/Abdominal exam: Present: soft, normal bowel sounds. Absent: distended, tenderness, guarding, rebound, rigid Extremities exam: Present: normal inspection, full ROM, normal capillary refill. Absent: tenderness, pedal edema, joint swelling, calf tenderness Back exam: Present: normal inspection Neurological exam: Present: alert, oriented X3, CN II-XII intact Psychiatric exam: Present: normal affect, normal mood Skin exam: Present: warm, dry, intact, normal color. Absent: rash Course Vital Signs 06/13/24 06/13/24 06/13/24 21:29 21:47 23:00 Temperature 97.9 F Pulse Rate 63 66 61 Respiratory 22 22 18 Rate Blood Pressure 162/95 178/94 145/75 O2 Sat by Pulse 100 96 98 Oximetry 06/14/24 06/14/24 06/14/24 01:35 06:30 07:49 Temperature 98.8 F Pulse Rate 71 82 78 Respiratory 18 18 22 Rate Blood Pressure 168/90 198/94 148/80 O2 Sat by Pulse 97 94 L 97 Oximetry 06/14/24 06/14/24 06/14/24 10:40 11:41 15:11 Temperature Pulse Rate 71 75 66 Respiratory 18 20 18 Rate Blood Pressure 147/76 132/75 126/87 O2 Sat by Pulse 94 L 94 L 96 Oximetry 06/14/24 06/14/24 17:33 19:41 Temperature 97.5 F L Pulse Rate 63 88 Respiratory 18 17 Rate Blood Pressure 138/73 153/86 O2 Sat by Pulse 100 97 Oximetry - Reevaluation(s) Reevaluation #1: 06/13/24 21:44 Medical records reviewed Reevaluation #2: 06/13/24 23:15 Patient symptoms remain here in the ER with persistent chest pain Reevaluation #3: 06/13/24 23:16 Patient informed of results and questions were answered Reevaluation #4: Was pt. sent in by a medical professional or institution ([facility], [employer], urgent care, hospital, or shelter...) When possible be specific @ -no Did you speak to anyone other than the patient for history (EMS, parent, family, police, friend...)? What history was obtained from this source @ -no Did you review nursing and triage notes (agree or disagree)? Why? @ -agree Are old charts reviewed (outside hosp., previous admission, EMS record, old EKG, old radiological studies, urgent care reports/EKG's, shelter records)? Report findings @ -yes Differential Diagnosis (chest pain, altered mental status, abdominal pain women, abdominal pain men, vaginal bleeding, weakness, fever, dyspnea, syncope, headache, dizziness, GI bleed, back pain, seizure, CVA, palpatations, mental health, musculoskeletal)? @ -prior EKG interpreted by me (3pts min.). @ -yes X-rays interpreted by me (1pt min.). @ -yes negative for acute disease CT interpreted by me (1pt min.). @ -no U/S interpreted by me (1pt. min.). @ -no What testing was considered but not performed or refused? (CT, X-rays, U/S, labs)? Why? @ -none What meds were considered but not given or refused? Why? @ -none Did you discuss the management of the patient with other professionals (professionals i.e. , [facility], [employer], lab, RT, psych nurse, social work nurse, inspector water pollution control, teacher, property disposal officer, case supervisor)? Give summary @ -no Was smoking cessation discussed for >3mins.? @ -no Was critical care preformed (if so, how long)? @ -no Were there social determinants of health that impacted care today? How? (Homelessness, low income, unemployed, alcoholism, drug addiction, transportation, low edu. Level, literacy, decrease access to med. care, intermediate, rehab)? @ -none Was there de-escalation of care discussed even if they declined (Discuss DNR or withdrawal of care, Hospice)? DNR status @ -no What co-morbidities impacted this encounter? (DM, HTN, Smoking, COPD, CAD, Cancer, CVA, ARF, Chemo, Hep., AIDS, mental health diagnosis, sleep apnea, morbid obesity)? @ -none Was patient admitted / discharged? Hospital course, mention meds given and route, prescriptions, significant lab abnormalities, going to OR and other pertinent info. @ - 83 female with chest pain syndrome type of chest pain left-sided chest pain tightness left arm pain. Patient admitted for cardiac evaluation and observation Admitted Undiagnosed new problem with uncertain prognosis? @ -no Drug Therapy requiring intensive monitoring for toxicity (Heparin, Nitro, Insulin, Cardizem)? @ -no Were any procedures done? @ -no Diagnosis/symptom? @ -UTI Acute, or Chronic, or Acute on Chronic? @ -Acute Uncomplicated (without systemic symptoms) or Complicated (systemic symptoms)? @ -Complicated Side effects of treatment? @ -no Exacerbation, Progression, or Severe Exacerbation? @ -exacerbation Poses a threat to life or bodily function? How? (Chest pain, [place], [place], pneumonia, PE, COPD, DKA, ARF, appy, cholecystitis, CVA, Diverticulitis, Homicidal, Suicidal, threat to staff... and all critical care pts) @ -yes extremes of age Reevaluation #5: Differential Chest Pain: Stable Angina, Unstable Angina, STEMI, NSTEMI Aortic Dissection, Pneumothorax, Musculoskeletal, Esophageal Spasm GERD, Cholecystitis, Pancreatitis, Zoster, this is not meant to be an all-inclusive list. - Consultations Consultation #1: Dr. Menchaca who agrees to admit this patient Chest Pain MDM - [facility] 83 female with chest pain syndrome type of chest pain left-sided chest pain tightness left arm pain. Patient admitted for cardiac evaluation and observation Disposition Clinical Impression: Chest pain, Hypertension Disposition: ADMITTED IP TO THIS HOSP Condition: Fair Is patient prescribed a controlled substance at d/c from ED?: No Time of Disposition: 23:05
[2024-06-13] MEDS: SODIUM CHLORIDE 0.9% 1,000 ML IV STA (21:45)
[2024-06-13 22:02] LABS: Basophils # (A) 0.1 k/uL (0-0.2); Basophils % (A) 1 %; Eosinophils # (A) 0.4 k/uL (0-0.7); Eosinophils % (A) 4 %; HCT 37.3 % (34.0-46.0); HGB 12.6 gm/dL (11.4-16.0); Lymphocytes # (A) 3.8 k/uL (1.0-4.8); Lymphocytes % (A) 39 %; MCH 29.7 pg (25.0-35.0); MCHC 33.8 g/dL (31.0-37.0); MCV 87.8 fL (80.0-100.0); Mean Platelet Volume 7.6; Monocytes # (A) 0.6 k/uL (0-1.0); Monocytes % (A) 6 %; Neutrophils # (A) 4.7 k/uL (1.3-7.7); Neutrophils % (A) 48 %; Platelet Count 258 k/uL (150-450); RBC 4.24 m/uL (3.80-5.40); RDW 13.8 % (11.5-15.5); WBC 9.8 k/uL (3.8-10.6)
--- NOTE | 2024-06-13 22:04 | XR ---
EXAMINATION TYPE: XR chest 2V DATE OF EXAM: 06/13/2024 9:53 PM COMPARISON: Chest radiographs from 07/18/2023. CLINICAL INDICATION: Female, 83 years old with history of Weakness; [facility] TECHNIQUE: XR chest 2V Frontal and lateral views of the chest. FINDINGS: Lungs/Pleura: There is no evidence of pleural effusion, focal consolidation, or pneumothorax. Pulmonary vascularity: Unremarkable. Heart/mediastinum: Cardiomediastinal silhouette is unremarkable. Musculoskeletal: No acute osseous pathology. Other findings: None IMPRESSION: No acute cardiopulmonary disease/process. [facility], , 06/13/2024 10:01 PM
[2024-06-13] MEDS: MORPHINE SULFATE 4 MG/ML SYRINGE IVP STA (22:06)
[2024-06-13 22:16] LABS: Prothrombin Time 11.1 sec (10.0-12.5)
[2024-06-13 22:20] LABS: ALT 18 U/L (4-34); AST 19 U/L (14-36); African American GFR (CKD) 62 (>60 ml/min/1.73 sqM); Albumin 3.8 g/dL (3.5-5.0); Alkaline Phosphatase 91 U/L (38-126); Anion Gap 11 mmol/L; Blood Urea Nitrogen 21 mg/dL (7-17); Carbon Dioxide 21 mmol/L (22-30); Chloride 106 mmol/L (98-107); Glucose 111 mg/dL (74-99); Lipase 52 U/L (23-300); Magnesium 2.1 mg/dL (1.6-2.3); Non-African American GFR(CKD) 53 (>60 ml/min/1.73 sqM); Phosphorus 3.1 mg/dL (2.5-4.5); Potassium 4.3 mmol/L (3.5-5.1); Sodium 138 mmol/L (137-145); Total Bilirubin 0.5 mg/dL (0.2-1.3); Total Protein 6.3 g/dL (6.3-8.2)
[2024-06-13 22:27] LABS: NT-Pro-B-Type Natriuretic Pept 142 pg/mL
[2024-06-13 22:54] LABS: Appearance,Urine Clear (Clear); Bacteria,Urine Rare /hpf; Bilirubin,Urine Negative (Negative); Blood,Urine Negative (Negative); Color,Urine Colorless; Glucose,Urine (UA) Negative (Negative); Ketones,Urine Negative (Negative); Leukocyte Esterase,Urine Moderate (Negative); Nitrite,Urine Negative (Negative); PH, Urine 6.5 (5.0-8.0); Protein,Urine Negative (Negative); RBC,Urine 1 /hpf (0-5); Specific Gravity,Urine 1.008 (1.001-1.035); Urobilinogen,Urine <2.0 mg/dL (<2.0); WBC,Urine 11 /hpf (0-5)
[2024-06-13] MEDS ORDERED: LORazepam 0.5 MG TAB PO PRN (23:14)
[2024-06-13] MEDS ORDERED: NALOXONE 0.4 MG/ML 1 ML VIAL IV PRN (23:14)
[2024-06-13] MEDS: SODIUM CHLORIDE 0.9% 1,000 ML IV SCH (23:34)
[2024-06-14] MEDS: ONDANSETRON 4 MG/2 ML VIAL IVP PRN (06:51)
[2024-06-14] MEDS: MORPHINE SULFATE 4 MG/ML SYRINGE IV PRN (06:51)
[2024-06-14] MEDS: LOSARTAN 25 MG TAB PO SCH (08:03)
[2024-06-14] MEDS: amLODIPine 5 MG TAB PO SCH (08:03)
[2024-06-14] MEDS: METOPROLOL TARTRATE 50 MG TAB PO SCH (08:03)
[2024-06-14] MEDS: ATORVASTATIN 10 MG TAB PO SCH (08:03)
[2024-06-14 08:35] LABS: Influenza A Not Detected (Not Detectd); Influenza B Not Detected (Not Detectd); RSV Not Detected (Not Detectd)
--- NOTE | 2024-06-14 10:00 | P.CRDCN ---
History of Present Illness History of present illness: HISTORY OF PRESENT ILLNESS: This is a 83-year-old female with a past medical history significant for hypertension and hyperlipidemia. Patient follows in the office with Dr. Langston. We have been asked to see the patient in consultation for chest pain. Patient examined at the bedside in the emergency room. Patient states that she had chest discomfort yesterday in the middle of her chest. She states this pain has been going on since [place]. She states she was sitting at home yesterday when she started having chest discomfort. She states the pain is not exertionally related. She does report the pain is worse with deep inspiration. This morning she is also complaining of pain in her arms and pain in both of her legs. She does report having dizziness yesterday. She does have a frequent cough this time of examination. DIAGNOSTICS: - EKG reveals sinus mechanism with no signs of acute ischemia - Chest xray negative for acute process - Laboratory data: WBC 9.8. Hemoglobin 12.6. Platelet count 258. Sodium 138. Potassium 4.3. BUN 21. Creatinine 1.00. Troponin negative x 3. - Current home cardiac medications include losartan 25 mg daily, Toprol tartrate 50 mg daily, rosuvastatin 5 mg daily, amlodipine 5 mg daily. - Most recent echocardiogram obtained in September 2017 revealed ejection fraction 55 to 60%, trace to mild MR, trace TR - Patient underwent Lexiscan stress test in October 2015 REVIEW OF SYSTEMS: At the time of my exam: CONSTITUTIONAL: Denies fever or chills. HEENT: Denies blurred vision, vision changes, or eye pain. Denies hemoptysis CARDIOVASCULAR: Denies chest pain. Denies orthopnea. Denies PND. Denies palpitations RESPIRATORY: Denies shortness of breath. GASTROINTESTINAL: Denies abdominal pain. Denies nausea or vomiting. HEMATOLOGIC: Denies bleeding disorders. GENITOURINARY: Denies any blood in urine. SKIN: Denies pruitis. Denies rash. PHYSICAL EXAM: VITAL SIGNS: Reviewed. GENERAL: Well-developed in no acute distress. HEENT: Head is normocephalic. Pupils are equal, round. Sclerae anicteric. Mucous membranes of the mouth are moist. Neck supple. No JVD or thyromegaly LUNGS: Respirations even and unlabored. Lungs essentially clear to auscultation bilaterally. HEART: Regular rate and rhythm. S1 and S2 heard. ABDOMEN: Soft. Nondistended. Nontender. EXTREMITIES: Normal range of motion. No clubbing or cyanosis. Peripheral pulses intact. No lower extremity edema NEUROLOGIC: Awake and alert. Oriented x 3. ASSESSMENT: Chest pain, troponin negative x 3 Generalized pain Hypertension Hyperlipidemia PLAN: An acute coronary but has been ruled out Obtain 2D echo to assess cardiac structure and function Resume home cardiac medications No plans for inpatient stress testing or cardiac catheterization Further recommendations pending patient course Nurse practitioner note has been reviewed by physician. Signing provider agrees with the documented findings, assessment, and plan of care documented by CAR[employer] LAMP CLEANER as a scribe. Past Medical History Past Medical History: Hypertension Additional Past Medical History / Comment(s): syncope History of Any Multi-Drug Resistant Organisms: None Reported Past Surgical History: Adenoidectomy, Cholecystectomy, Hysterectomy, Tonsillectomy Additional Past Surgical History / Comment(s): cyst removed from back Past Psychological History: Anxiety Smoking Status: Former smoker Past Alcohol Use History: None Reported Past Drug Use History: None Reported - Past Family History Mother Family Medical History: Diabetes Mellitus Medications and Allergies Home Medications Medication Instructions Recorded Confirmed Type Metoprolol Tartrate [Lopressor] 50 mg PO DAILY 06/13/18 06/14/24 History Nitroglycerin Sl Tabs [Nitrostat] 0.4 mg SUBLINGUAL Q5M PRN 06/13/18 06/14/24 History Losartan [Cozaar] 25 mg PO DAILY 06/14/24 06/14/24 History Rosuvastatin Calcium [Crestor] 5 mg PO DAILY 06/14/24 06/14/24 History amLODIPine [Norvasc] 5 mg PO DAILY 06/14/24 06/14/24 History Allergies Allergy/AdvReac Type Severity Reaction Status Date / Time biotin AdvReac Unknown Verified 06/13/24 21:35 hydromorphone HCl AdvReac Confusion Verified 06/13/24 21:35 [From Dilaudid] promethazine HCl AdvReac Confusion Verified 06/13/24 21:35 [From Phenergan] Physical Exam Vitals: Vital Signs Temp Pulse Resp BP Pulse Ox 06/14/24 07:49 98.8 F 78 22 148/80 97 06/14/24 06:30 82 18 198/94 94 L 06/14/24 01:35 71 18 168/90 97 06/13/24 23:00 61 18 145/75 98 06/13/24 21:47 66 22 178/94 96 06/13/24 21:29 97.9 F 63 22 162/95 100 Intake and Output 06/13/24 06/14/24 06/14/24 22:59 06:59 14:59 Other: Weight 72.575 kg Results 06/13/24 21:43 06/13/24 21:43 Cardiac Enzymes 06/13/24 06/13/24 06/14/24 Range/Units 21:43 21:43 00:19 AST 19 (14-36) U/L Troponin I <0.012 <0.012 (0.000-0.034) ng/mL 06/14/24 Range/Units 03:08 AST (14-36) U/L Troponin I <0.012 (0.000-0.034) ng/mL Coagulation 06/13/24 Range/Units 21:43 PT 11.1 (10.0-12.5) sec APTT 19.0 L (22.0-30.0) sec CBC 06/13/24 Range/Units 21:43 WBC 9.8 (3.8-10.6) k/uL RBC 4.24 (3.80-5.40) m/uL Hgb 12.6 (11.4-16.0) gm/dL Hct 37.3 (34.0-46.0) % Plt Count 258 (150-450) k/uL Comprehensive Metabolic Panel 06/13/24 Range/Units 21:43 Sodium 138 (137-145) mmol/L Potassium 4.3 (3.5-5.1) mmol/L Chloride 106 (98-107) mmol/L Carbon Dioxide 21 L (22-30) mmol/L BUN 21 H (7-17) mg/dL Creatinine 1.00 (0.52-1.04) mg/dL Glucose 111 H (74-99) mg/dL Calcium 9.0 (8.4-10.2) mg/dL AST 19 (14-36) U/L ALT 18 (4-34) U/L Alkaline Phosphatase 91 (38-126) U/L Total Protein 6.3 (6.3-8.2) g/dL Albumin 3.8 (3.5-5.0) g/dL Current Medications Generic Name Dose Route Start Last Admin Trade Name Freq PRN Reason Stop Dose Admin Amlodipine Besylate 5 mg 06/14/24 09:00 06/14/24 08:03 Amlodipine 5 Mg Tab PO 5 mg DAILY GIANFRANCO Administration Atorvastatin Calcium 10 mg 06/14/24 09:00 06/14/24 08:03 Atorvastatin 10 Mg Tab PO 10 mg DAILY GIANFRANCO Administration Sodium Chloride 1,000 mls @ 75 mls/hr 06/13/24 23:15 06/13/24 23:34 Saline 0.9% IV 75 mls/hr .[id number] GIANFRANCO Administration Lorazepam 0.5 mg 06/13/24 23:14 Lorazepam 0.5 Mg Tab PO Q6HR PRN Anxiety Losartan Potassium 25 mg 06/14/24 09:00 06/14/24 08:03 Losartan 25 Mg Tab PO 25 mg DAILY GIANFRANCO Administration Metoprolol Tartrate 50 mg 06/14/24 09:00 06/14/24 08:03 Metoprolol Tartrate 50 Mg Tab PO 50 mg DAILY GIANFRANCO Administration Morphine Sulfate 4 mg 06/13/24 23:14 06/14/24 06:51 Morphine Sulfate 4 Mg/Ml Syringe IV 4 mg Q4HR PRN Administration Severe Pain (Scale 7 to 10) Naloxone HCl 0.2 mg 06/13/24 23:14 Naloxone 0.4 Mg/Ml 1 Ml Vial IV Q2M PRN Opioid Reversal Ondansetron HCl 4 mg 06/13/24 23:14 06/14/24 06:51 Ondansetron 4 Mg/2 Ml Vial IVP 4 mg Q8HR PRN Administration Nausea And Vomiting Intake and Output 06/13/24 06/14/24 06/14/24 22:59 06:59 14:59 Other: Weight 72.575 kg 06/13/24 21:43 06/13/24 21:43
[2024-06-14] MEDS ORDERED: NITROGLYCERIN SL TABS 0.4 MG TAB SUBLINGUAL PRN (11:23)
--- NOTE | 2024-06-14 15:30 | P.HPIM ---
History of Present Illness H&P Date: 06/14/24 Brii Cannon, is an 83-year-old female who presented to [facility] emergency room with a chief complaint of chest pain She was evaluated in the emergency room vital examination on presentation revealed a temperature of 97.9 pulse 63 respiration 22 blood pressure 162/95 pulse ox 100% on room air Laboratory data reveals a white blood count of 9.8 hemoglobin 12.6 platelet count 258 BUN 21 creatinine 1.0 glucose 111 troponin 0.012 lipase 52 influenza A and B RSV and COVID PCR all negative Testing in the emergency room revealed EKG revealed normal sinus rhythm normal EKG chest x-ray revealed no acute cardiopulmonary disease Patient was admitted to medical floor for further evaluation and treatment Past Medical History Past Medical History: Hypertension Additional Past Medical History / Comment(s): syncope History of Any Multi-Drug Resistant Organisms: None Reported Past Surgical History: Adenoidectomy, Cholecystectomy, Hysterectomy, Tonsillectomy Additional Past Surgical History / Comment(s): cyst removed from back Past Psychological History: Anxiety Smoking Status: Former smoker Past Alcohol Use History: None Reported Past Drug Use History: None Reported - Past Family History Mother Family Medical History: Diabetes Mellitus Medications and Allergies Home Medications Medication Instructions Recorded Confirmed Type Metoprolol Tartrate [Lopressor] 50 mg PO DAILY 06/13/18 06/14/24 History Nitroglycerin Sl Tabs [Nitrostat] 0.4 mg SUBLINGUAL Q5M PRN 06/13/18 06/14/24 History Losartan [Cozaar] 25 mg PO DAILY 06/14/24 06/14/24 History Rosuvastatin Calcium [Crestor] 5 mg PO DAILY 06/14/24 06/14/24 History amLODIPine [Norvasc] 5 mg PO DAILY 06/14/24 06/14/24 History Allergies Allergy/AdvReac Type Severity Reaction Status Date / Time biotin AdvReac Unknown Verified 06/13/24 21:35 hydromorphone HCl AdvReac Confusion Verified 06/13/24 21:35 [From Dilaudid] promethazine HCl AdvReac Confusion Verified 06/13/24 21:35 [From Phenergan] Physical Exam Vitals: Vital Signs Temp Pulse Resp BP Pulse Ox 06/14/24 10:40 71 18 147/76 94 L 06/14/24 07:49 98.8 F 78 22 148/80 97 06/14/24 06:30 82 18 198/94 94 L 06/14/24 01:35 71 18 168/90 97 06/13/24 23:00 61 18 145/75 98 06/13/24 21:47 66 22 178/94 96 06/13/24 21:29 97.9 F 63 22 162/95 100 Intake and Output 06/13/24 06/14/24 06/14/24 22:59 06:59 14:59 Other: Weight 72.575 kg In general patient is alert and oriented x 3 in no distress HEENT head normocephalic and atraumatic Neck is supple no JVD no goiter no lymphadenopathy no carotid bruit Chest examination is clear to auscultation no crackles no wheezing Cardiac exam reveals regular heart sounds S1 and S2 no gallops no murmurs Abdomen is soft nontender no organomegaly with normal bowel sounds Extremity exam reveals no edema no cyanosis or clubbing Neurological examination reveals no gross focal deficits Results CBC & Chem 7: 06/13/24 21:43 06/13/24 21:43 Labs: Abnormal Lab Results - Last 24 Hours (Table) 06/13/24 06/13/24 06/13/24 Range/Units 21:43 21:43 22:43 APTT 19.0 L (22.0-30.0) sec Carbon Dioxide 21 L (22-30) mmol/L BUN 21 H (7-17) mg/dL Glucose 111 H (74-99) mg/dL Ur Leukocyte Esterase Moderate H (Negative) Urine WBC 11 H (0-5) /hpf Urine Bacteria Rare H (None) /hpf Assessment and Plan Plan: Episode of chest pain Underlying history of hypertension Underlying history of hyperlipidemia Underlying history of anxiety disorder Remote history of subarachnoid hemorrhage At this time patient was seen and examined in the emergency room Home medications reviewed and reordered For DVT prophylaxis subcu heparin Cardiology consultation requested Echocardiogram ordered Follow closely
[2024-06-14] MEDS: ENOXAPARIN 40 MG/0.4 ML SYRINGE SQ SCH (17:35)
[2024-06-15 09:03] LABS: ALT 20 U/L (8-44); AST 21 U/L (13-35); Albumin/Globulin Ratio 1.67 Ratio (1.60-3.17); Alkaline Phosphatase 94 U/L (41-126); BUN/Creat Ratio 13.25 Ratio (12.00-20.00); Blood Urea Nitrogen 10.6 mg/dL (9.0-27.0); Calcium 8.9 mg/dL (8.7-10.3); Carbon Dioxide 22.3 mmol/L (21.6-31.8); Chloride 105 mmol/L (96-109); Globulin 2.4 g/dL (1.6-3.3); Glucose 101 mg/dL (70-110); Potassium 4.3 mmol/L (3.5-5.5); Sodium 139 mmol/L (135-145); Total Bilirubin 1.1 mg/dL (0.3-1.2); Total Protein 6.4 g/dL (6.2-8.2)
[2024-06-15 10:24] LABS: Basophils # (A) 0.03 X 10*3/uL (0.00-0.10); Basophils % (A) 0.2 %; Eosinophils # (A) 0.67 X 10*3/uL (0.04-0.35); Eosinophils % (A) 5.5 %; HCT 42.7 % (37.2-46.3); HGB 13.6 g/dL (12.0-15.0); Lymphocytes # (A) 3.26 X 10*3/uL (0.90-5.00); Lymphocytes % (A) 26.6 %; MCH 29.1 pg (27.0-32.0); MCHC 31.9 g/dL (32.0-37.0); MCV 91.4 FL (80.0-97.0); Mean Platelet Volume 10.6 FL (9.5-12.2); Monocytes # (A) 0.76 X 10*3/uL (0.20-1.00); Monocytes % (A) 6.2 %; NRBC Per 100 WBC 0 X 10*3/uL (0.00-0.01); Neutrophils % (A) 61.1 %; Platelet Count 308 X 10*3/uL (140-440); RBC 4.67 X 10*6/uL (4.10-5.20); RDW 13.3 % (11.5-14.5); WBC 12.27 X 10*3/uL (4.50-10.00)
--- NOTE | 2024-06-15 11:11 | P.PN ---
Subjective HISTORY OF PRESENT ILLNESS: This is a 83-year-old female with a past medical history significant for hypertension and hyperlipidemia. Patient follows in the office with Dr. Langston. We have been asked to see the patient in consultation for chest pain. Patient examined at the bedside in the emergency room. Patient states that she had chest discomfort yesterday in the middle of her chest. She states this pain has been going on since [place]. She states she was sitting at home yesterday when she started having chest discomfort. She states the pain is not exertionally related. She does report the pain is worse with deep inspiration. This morning she is also complaining of pain in her arms and pain in both of her legs. She does report having dizziness yesterday. She does have a frequent cough this time of examination. DIAGNOSTICS: - EKG reveals sinus mechanism with no signs of acute ischemia - Chest xray negative for acute process - Laboratory data: WBC 9.8. Hemoglobin 12.6. Platelet count 258. Sodium 138. Potassium 4.3. BUN 21. Creatinine 1.00. Troponin negative x 3. - Current home cardiac medications include losartan 25 mg daily, Toprol tartrate 50 mg daily, rosuvastatin 5 mg daily, amlodipine 5 mg daily. - Most recent echocardiogram obtained in September 2017 revealed ejection fraction 55 to 60%, trace to mild MR, trace TR - Patient underwent Lexiscan stress test in October 2015 Have not seen 2024 Patient examined this morning at the bedside. Patient states that she is tired this morning and did not sleep overnight. She denies any shortness of breath. She reports chest discomfort with deep inspiration. She reports that her legs and her arms are still hurting this morning and her left arm feels tingly. Vit al signs are stable. 2D echo remains pending. PHYSICAL EXAM: VITAL SIGNS: Reviewed. GENERAL: Well-developed in no acute distress. HEENT: Head is normocephalic. Pupils are equal, round. Sclerae anicteric. Mucous membranes of the mouth are moist. Neck supple. No JVD or thyromegaly LUNGS: Respirations even and unlabored. Lungs essentially clear to auscultation bilaterally. HEART: Regular rate and rhythm. S1 and S2 heard. ABDOMEN: Soft. Nondistended. Nontender. EXTREMITIES: Normal range of motion. No clubbing or cyanosis. Peripheral pulses intact. No lower extremity edema NEUROLOGIC: Awake and alert. Oriented x 3. ASSESSMENT: Chest pain, troponin negative x 3 Generalized pain Hypertension Hyperlipidemia PLAN: An acute coronary but has been ruled out 2D echo ordered. Await results. Continue current cardiac medications No plans for inpatient stress testing or cardiac catheterization Patient may be discharged from a cardiac standpoint today pending echo results Further recommendations pending patient course Nurse practitioner note has been reviewed by physician. Signing provider agrees with the documented findings, assessment, and plan of care documented by MANAGING ATTORNEY as a scribe. Objective - Vital Signs Vital signs: Vital Signs Temp 97.9 F 06/15/24 07:00 Pulse 68 06/15/24 07:00 Resp 16 06/15/24 07:00 BP 146/71 06/15/24 07:00 Pulse Ox 98 06/15/24 07:00 FiO2 Intake & Output 06/14/24 06/15/24 06/15/24 18:59 06:59 18:59 Intake Total 480 Balance 480 Weight 72.575 kg Intake: Oral 480 Other: Voiding Method Toilet # Voids 3 - Labs CBC & Chem 7: 06/15/24 05:20 06/15/24 05:20 Labs: Abnormal Lab Results - Last 24 Hours (Table) 06/15/24 Range/Units 05:20 WBC 12.27 H (4.50-10.00) X 10*3/uL MCHC 31.9 L (32.0-37.0) g/dL Immature Gran # 0.05 H (0.00-0.04) X 10*3/uL Eosinophils # 0.67 H (0.04-0.35) X 10*3/uL
--- NOTE | 2024-06-15 11:19 | P.PN ---
Subjective Progress Note Date: 06/15/24 Brii Cannon, is an 83-year-old female who presented to [facility] emergency room with a chief complaint of chest pain She was evaluated in the emergency room vital examination on presentation revealed a temperature of 97.9 pulse 63 respiration 22 blood pressure 162/95 pulse ox 100% on room air Laboratory data reveals a white blood count of 9.8 hemoglobin 12.6 platelet count 258 BUN 21 creatinine 1.0 glucose 111 troponin 0.012 lipase 52 influenza A and B RSV and COVID PCR all negative Testing in the emergency room revealed EKG revealed normal sinus rhythm normal EKG chest x-ray revealed no acute cardiopulmonary disease Patient was admitted to medical floor for further evaluation and treatment On 06/15/2024 patient is alert and oriented x 3. Patient reports she just does not feel very good today and feels nauseous. Patient denies any chest pain. 2D echo has been ordered per cardiology services. UA was positive for urinary tract infection will start patient on Rocephin. At this time patient denies chest pain or shortness of breath. Patient denies any urinary burning or frequency. Current vital signs temp 97.9, heart rate 68, respiratory rate 16, blood pressure 146/71 with a pulse ox of 98% on room air Objective - Vital Signs Vital signs: Vital Signs Temp 97.9 F 06/15/24 07:00 Pulse 68 06/15/24 07:00 Resp 16 06/15/24 07:00 BP 146/71 06/15/24 07:00 Pulse Ox 98 06/15/24 07:00 FiO2 Intake & Output 06/14/24 06/15/24 06/15/24 18:59 06:59 18:59 Intake Total 480 Balance 480 Weight 72.575 kg Intake: Oral 480 Other: Voiding Method Toilet # Voids 3 - Exam In general patient is alert and oriented x 3 in no distress HEENT head normocephalic and atraumatic Neck is supple no JVD no goiter no lymphadenopathy no carotid bruit Chest examination is clear to auscultation no crackles no wheezing Cardiac exam reveals regular heart sounds S1 and S2 no gallops no murmurs Abdomen is soft nontender no organomegaly with normal bowel sounds Extremity exam reveals no edema no cyanosis or clubbing Neurological examination reveals no gross focal deficits - Labs CBC & Chem 7: 06/15/24 05:20 06/15/24 05:20 Labs: Abnormal Lab Results - Last 24 Hours (Table) 06/15/24 Range/Units 05:20 WBC 12.27 H (4.50-10.00) X 10*3/uL MCHC 31.9 L (32.0-37.0) g/dL Immature Gran # 0.05 H (0.00-0.04) X 10*3/uL Eosinophils # 0.67 H (0.04-0.35) X 10*3/uL Assessment and Plan Plan: Episode of chest pain Underlying history of hypertension Underlying history of hyperlipidemia Underlying history of anxiety disorder Remote history of subarachnoid hemorrhage At this time patient was seen and examined in the emergency room Home medications reviewed and reordered For DVT prophylaxis subcu heparin Cardiology consultation requested Echocardiogram ordered Follow closely
--- NOTE | 2024-06-15 13:48 | CA ---
Transthoracic Echo Report Name: Brii Cannon Age: 83 Gender: F : 1940 Exam Date: 06/15/2024 09:27 Exam Location: [facility] Ht (in): 60 Wt (lb): 160 Ordering Physician: Elder Solis DO Attending/Referring Phys: [id number], [employer] Steering Mechanic Kate Vega RDCS Procedure CPT: Indications: CP Cardiac Hx: Technical Quality: Fair Contrast 1: Total Dose (mL): Contrast 2: Total Dose (mL): MEASUREMENTS (Male / Female) Normal Values 2D ECHO LV Diastolic Diameter PLAX 3.8 cm 4.2 - 5.9 / 3.9 - 5.3 cm LV Systolic Diameter PLAX 2.3 cm IVS Diastolic Thickness 1.1 cm 0.6 - 1.0 / 0.6 - 0.9 cm LVPW Diastolic Thickness 0.9 cm 0.6 - 1.0 / 0.6 - 0.9 cm LV Relative Wall Thickness 0.5 RV Internal Dim ED PLAX 3.3 cm LVOT Diameter 1.8 cm Aortic Root Diameter 3.1 cm LA Volume 14.2 cm??? 18 - 58 / 22 - 52 cm??? LA Volume Index 8.0 cm???/m??? 16 - 28 cm???/m??? DOPPLER LVOT Peak Velocity 68.5 cm/s LVOT Peak Gradient 1.9 mmHg LVOT Velocity Time Integral 16.5 cm LVOT Stroke Volume 42.9 cm??? LVOT Stroke Volume Index 25.3 ml/m??? LVOT Cardiac Index 1540.3 cm???/min???m??? MV Area PHT 4.4 cm??? Mitral E Point Velocity 78.0 cm/s Mitral A Point Velocity 73.7 cm/s Mitral E to A Ratio 1.1 MV Deceleration Time 171.6 ms MV E' Velocity 4.1 cm/s Mitral E to MV E' Ratio 19.1 FINDINGS Left Ventricle Borderline left ventricular hypertrophy. Normal left ventricular systolic function with no obvious regional wall motion abnormalities. Left ventricular ejection fraction is estimated at 55-60 %. Right Ventricle Mild right ventricular dilatation. Right Atrium Mild right atrial dilatation. Left Atrium Normal left atrial size. Mitral Valve Structurally normal mitral valve. Mild mitral annular calcification. Mild mitral regurgitation. Aortic Valve Trileaflet aortic valve. No aortic valve stenosis or regurgitation. Aortic valve sclerosis. Tricuspid Valve Structurally normal tricuspid valve. Mild tricuspid regurgitation. Pulmonic Valve Structurally normal pulmonic valve. Trace pulmonic regurgitation. Pericardium No pericardial effusion. Aorta Normal size aortic root and proximal ascending aorta. CONCLUSIONS 1. Normal left ventricular size and systolic function 2. Dilated right ventricle 3. Mild mitral and tricuspid regurgitation Previewed by: Dr. Kia Rogel MD (Electronically Signed) Final Date: 15 June 2024 13:46
--- NOTE | 2024-06-15 14:19 | CT ---
EXAMINATION TYPE: CT angio chest CT DLP: 605 mGycm, Automated exposure control for dose reduction was used. DATE OF EXAM: 06/15/2024 2:12 PM COMPARISON: Chest radiograph 06/13/2024 CLINICAL INDICATION:Female, 83 years old with history of abnormal D-Dimer; abnormal d dimer. TECHNIQUE/CONTRAST: CTA scan of the thorax is performed with IV Contrast, patient injected with 68 mL of Isovue 370, pulm onary embolism protocol. MIP images are created and reviewed. FINDINGS: Pulmonary Artery: There is no evidence for a filling defect within the pulmonary vasculature to sugge st acute pulmonary embolism. The pulmonary artery is of normal size. Lungs/Pleura: No evidence of focal consolidation, pleural effusion or pneumothorax. Left lower lobe c alcified granulomas. No suspicious pulmonary mass. Airway: Large airways are patent. Heart: Heart is within normal limits for size.. Vasculature: No evidence of aortic aneurysm. Mild atherosclerotic calcification of the aorta and its branches. Mediastinum: No evidence of adenopathy. Calcified nonenlarged hilar lymph nodes. Musculoskeletal: No acute osseous abnormalities. Bilateral shoulder arthropathy. Remote left-sided ri b fractures. No aggressive osseous lesion. Mild multilevel degenerative disc disease. Soft Tissues: Unremarkable. Lower neck: No significant findings. Upper Abdomen: Gallbladder is surgically absent. Liver is diffusely hypoattenuating. IMPRESSION: 1. No evidence of pulmonary embolism or acute thoracic process. 2. Sequelae of prior granulomatous disease. 3. Hepatic steatosis. [facility], , 06/15/2024 2:17 PM
[2024-06-16 07:41] VITALS: BP 143/85; PULSE 79; RESP 16; TEMP 98.4
[2024-06-16 09:43] LABS: ALT 19 U/L (8-44); AST 18 U/L (13-35); Albumin 4.2 g/dL (3.8-4.9); Albumin/Globulin Ratio 1.68 Ratio (1.60-3.17); Alkaline Phosphatase 96 U/L (41-126); BUN/Creat Ratio 15.33 Ratio (12.00-20.00); Blood Urea Nitrogen 13.8 mg/dL (9.0-27.0); Carbon Dioxide 21.5 mmol/L (21.6-31.8); Chloride 106 mmol/L (96-109); Globulin 2.5 g/dL (1.6-3.3); Glucose 116 mg/dL (70-110); Potassium 4.6 mmol/L (3.5-5.5); Sodium 139 mmol/L (135-145); Total Bilirubin 0.5 mg/dL (0.3-1.2); Total Protein 6.7 g/dL (6.2-8.2)
[2024-06-16 09:48] LABS: Basophils # (A) 0.04 X 10*3/uL (0.00-0.10); Basophils % (A) 0.4 %; Eosinophils # (A) 0.75 X 10*3/uL (0.04-0.35); Eosinophils % (A) 6.6 %; HCT 44.6 % (37.2-46.3); HGB 14.1 g/dL (12.0-15.0); Lymphocytes # (A) 3.35 X 10*3/uL (0.90-5.00); Lymphocytes % (A) 29.7 %; MCH 28.7 pg (27.0-32.0); MCHC 31.6 g/dL (32.0-37.0); MCV 90.8 FL (80.0-97.0); Mean Platelet Volume 10.4 FL (9.5-12.2); Monocytes # (A) 0.75 X 10*3/uL (0.20-1.00); Monocytes % (A) 6.6 %; NRBC Per 100 WBC 0 X 10*3/uL (0.00-0.01); Neutrophils # (A) 6.33 X 10*3/uL (1.80-7.70); Neutrophils % (A) 56.2 %; Platelet Count 338 X 10*3/uL (140-440); RBC 4.91 X 10*6/uL (4.10-5.20); RDW 13.4 % (11.5-14.5); WBC 11.28 X 10*3/uL (4.50-10.00)
--- NOTE | 2024-06-16 13:09 | P.DS ---
Providers Date of admission: 06/13/24 23:15 Expected date of discharge: 06/16/24 Attending physician: Paulino Menchaca Consults: 06/13/24 23:14 Consult Physician Routine Consulting Provider: Kia Rogel Consult Reason/Comments: cp Do you want consulting provider notified?: Yes Primary care physician: Paulino Menchaca [place] [facility] Course: Diagnosis on discharge: Episode of chest pain Elevated D-dimer, no CT scan evidence of pulmonary embolism Underlying history of hypertension Underlying history of hyperlipidemia Underlying history of anxiety disorder Remote history of subarachnoid hemorrhage Hospital course: Brii Cannon, is an 83-year-old female who presented to [facility] emergency room with a chief complaint of chest pain She was evaluated in the emergency room vital examination on presentation revealed a temperature of 97.9 pulse 63 respiration 22 blood pressure 162/95 pulse ox 100% on room air Laboratory data reveals a white blood count of 9.8 hemoglobin 12.6 platelet count 258 BUN 21 creatinine 1.0 glucose 111 troponin 0.012 lipase 52 influenza A and B RSV and COVID PCR all negative Testing in the emergency room revealed EKG revealed normal sinus rhythm normal EKG chest x-ray revealed no acute cardiopulmonary disease Patient was admitted to medical floor for further evaluation and treatment On 06/15/2024 patient is alert and oriented x 3. Patient reports she just does not feel very good today and feels nauseous. Patient denies any chest pain. 2D echo has been ordered per cardiology services. UA was positive for urinary tract infection will start patient on Rocephin. At this time patient denies chest pain or shortness of breath. Patient denies any urinary burning or janie quency. Current vital signs temp 97.9, heart rate 68, respiratory rate 16, blood pressure 146/71 with a pulse ox of 98% on room air. On 06/16/2024 patient was seen and examined on the telemetry floor she is alert and oriented x 3 in no apparent distress, there is no fever or chills no headache or dizziness no chest pain no shortness of breath no cough no nausea or vomiting no abdominal pain no diarrhea and no urinary symptoms. Echocardiogram results reviewed and discussed with patient. CT scan angiogram of the chest reviewed and discussed with patient no evidence of pulmonary embolism, patient is symptom-free at this time, she is requesting to be discharged home. Patient will be discharged to home today will follow in the office in 2 to 3 days will make arrangement for follow-up with cardiology as outpatient. Patient Condition at Discharge: Fair Plan - Discharge Summary Discharge Rx Participant: No New Discharge Prescriptions: New cefuroxime axetiL [Ceftin] 500 mg PO BID 5 Days #10 tab Continue Nitroglycerin Sl Tabs [Nitrostat] 0.4 mg SUBLINGUAL Q5M PRN PRN Reason: Chest Pain Metoprolol Tartrate [Lopressor] 50 mg PO DAILY amLODIPine [Norvasc] 5 mg PO DAILY Rosuvastatin Calcium [Crestor] 5 mg PO DAILY Losartan [Cozaar] 25 mg PO DAILY Discharge Medication List Metoprolol Tartrate [Lopressor] 50 mg PO DAILY 06/13/18 [History] Nitroglycerin Sl Tabs [Nitrostat] 0.4 mg SUBLINGUAL Q5M PRN 06/13/18 [History] Losartan [Cozaar] 25 mg PO DAILY 06/14/24 [History] Rosuvastatin Calcium [Crestor] 5 mg PO DAILY 06/14/24 [History] amLODIPine [Norvasc] 5 mg PO DAILY 06/14/24 [History] cefuroxime axetiL [Ceftin] 500 mg PO BID 5 Days #10 tab 06/16/24 [Rx] Follow up Appointment(s)/Referral(s): Paulino Menchaca MD [Primary Care Provider] - 1-2 days (please call for an appointment !! ) [facility] Visiting Nurse, [NON-STAFF] - As Needed Patient Instructions/Handouts: Chest Pain (DC) Discharge Disposition: HOME SELF-CARE
== END 2024-06-16 12:28 | disposition home or self-care (01) ==
LOC: EC 21:16 → 6NMEDSUR 23:15
PROVIDERS: ADMIT Internal Medicine; ATTEND Internal Medicine
DX: R07.89 Other chest pain (principal); N39.0 Urinary tract infection, site not specified; R79.89 Other specified abnormal findings of blood chemistry; I08.1 Rheumatic disorders of both mitral and tricuspid valves; I10 Essential (primary) hypertension; E78.5 Hyperlipidemia, unspecified; F41.9 Anxiety disorder, unspecified; R41.89 Other symptoms and signs involving cognitive functions and awareness; M79.602 Pain in left arm; M79.605 Pain in left leg; M79.604 Pain in right leg; R42 Dizziness and giddiness; R05.9 Cough, unspecified; Z79.899 Other long term (current) drug therapy; Z88.5 Allergy status to narcotic agent; Z88.8 Allergy status to other drugs, medicaments and biological substances; Z87.891 Personal history of nicotine dependence; Z11.52 Encounter for screening for COVID-19; Z11.59 Encounter for screening for other viral diseases; Z86.79 Personal history of other diseases of the circulatory system
CPT/HCPCS: 96365; 96372 ×2; 96376; 96361 ×2; 96375 ×2; 99285; 36415; 93005; 93306; 97161; 97165; 85379; 83880; 80053 ×3; 83605; 83690; 83735; 84100; 84484 ×2; 85025 ×3; 85610; 85730; 81001; 87636; 71046; 71275; G0378 ×4; J2270 ×2; J2405; J1650 ×2; J0696; Q9967